=== PATIENT | female | born 1980 | race Caucasian/White ===

== ENCOUNTER 2017-05-18 16:55 | Emergency (ER) | payer OTHER ==
--- NOTE | 2017-05-18 17:13 | ED CLINICAL REPORT ---
Clinical Report - Physicians/Mid Levels [facility] [address] [place] [address] 05/18/2017 16:57 [id number] Time Seen: 17:05 May 18 2017. Arrived- By private vehicle. Historian- patient. HISTORY OF PRESENT ILLNESS Chief Complaint: left breast pain/weakness. This started yesterday and is still present. (Patients complaining of left breast pain since last night, some weakness and fatigue today. Patient denies fevers. Denies any rash. Denies any trauma. Denies cough/ sob. Vag delivery with no complications in january 2017). REVIEW OF SYSTEMS No fever, sore throat, nasal congestion, cough or diarrhea. No difficulty with urination or blackouts. No difficulty with ambulation. All systems otherwise negative, except as recorded above. PAST HISTORY Problems: Discomfort of . OB History. Care. Chronic Back Pain. . Additional Surgeries: Carpal Tunnel Surgery. Tonsillectomy. Allergies: Latex. SOCIAL HISTORY No alcohol use or drug use. ADDITIONAL NOTES The nursing notes have been reviewed. PHYSICAL EXAM Vital Signs: 05/18/2017 17:05 BP: 127/76. HR: 82. RR: 16. O2 saturation: 98%. Temp: 98.1 F. Pain level now: 7/10. Appearance: Alert. CVS: Normal heart rate and rhythm. Heart sounds normal. Respiratory: No respiratory distress. Breath sounds normal. No decreased air movement. Breast Exam: Seed District Sales Manager present. Right Breast: Normal appearance. No scars. Left Breast: Normal appearance. Normal nipple. Swelling. lateral/ tenderness as well, no fluctulance, no mass. No erythema noted. No skin rash, ecchymosis, laceration or abrasion present. No mastectomy noted, skin lesion present or nipple discharge. Abdomen: No visible injury. Soft. Bowel sounds normal. No abdominal tenderness. Skin: Skin warm. Normal skin color. Neuro: Oriented X 3. PROGRESS AND PROCEDURES Course of Care: afebrile patient. With no skin color changes of the breasts. No signs of abscess. No nipple discharge or drainage. The patient is above signs of early lactational mastitis. Pain history and generalized symptoms. Patient started on antibiotics, encouraged to continue breast-feeding. Discussed narcotic use and need to pump and dump. Patient understands plan. Patient is stable. Physical exam findings are improved. Symptoms better. Patient/family counseled. Disposition: Discharged. CLINICAL IMPRESSION Acute mastitis of the left breast associated with breast feeding. INSTRUCTIONS (as discussed will be given narcotics but please pump and dump after taking (within 15 mins) of the narcotic Continue to breast feed WARM packs). Prescription Medications: Hydrocodone/APAP 7.5mg / 325mg: take 1 orally every 6 hours as needed for pain. Dispense twelve (12). No refill. Cephalexin 500 mg: take 1 capsule orally every 6 hours for 10 days. No refill. (Electronically signed by Shreya Nixon P.A.-C 05/18/2017 17:24)
--- NOTE | 2017-05-18 17:13 | ED CLINICAL REPORT ---
Clinical Report - Physicians/Mid Levels [facility] [address] [place] [address] 05/18/2017 16:57 [id number] Time Seen: 17:05 May 18 2017. Arrived- By private vehicle. Historian- patient. HISTORY OF PRESENT ILLNESS Chief Complaint: left breast pain/weakness. This started yesterday and is still present. (Patients complaining of left breast pain since last night, some weakness and fatigue today. Patient denies fevers. Denies any rash. Denies any trauma. Denies cough/ sob. Vag delivery with no complications in january 2017). REVIEW OF SYSTEMS No fever, sore throat, nasal congestion, cough or diarrhea. No difficulty with urination or blackouts. No difficulty with ambulation. All systems otherwise negative, except as recorded above. PAST HISTORY Problems: Discomfort of . OB History. Care. Chronic Back Pain. . Additional Surgeries: Carpal Tunnel Surgery. Tonsillectomy. Allergies: Latex. SOCIAL HISTORY No alcohol use or drug use. ADDITIONAL NOTES The nursing notes have been reviewed. PHYSICAL EXAM Vital Signs: 05/18/2017 17:05 BP: 127/76. HR: 82. RR: 16. O2 saturation: 98%. Temp: 98.1 F. Pain level now: 7/10. Appearance: Alert. CVS: Normal heart rate and rhythm. Heart sounds normal. Respiratory: No respiratory distress. Breath sounds normal. No decreased air movement. Breast Exam: Rn Renal present. Right Breast: Normal appearance. No scars. Left Breast: Normal appearance. Normal nipple. Swelling. lateral/ tenderness as well, no fluctulance, no mass. No erythema noted. No skin rash, ecchymosis, laceration or abrasion present. No mastectomy noted, skin lesion present or nipple discharge. Abdomen: No visible injury. Soft. Bowel sounds normal. No abdominal tenderness. Skin: Skin warm. Normal skin color. Neuro: Oriented X 3. PROGRESS AND PROCEDURES Course of Care: afebrile patient. With no skin color changes of the breasts. No signs of abscess. No nipple discharge or drainage. The patient is above signs of early lactational mastitis. Pain history and generalized symptoms. Patient started on antibiotics, encouraged to continue breast-feeding. Discussed narcotic use and need to pump and dump. Patient understands plan. Patient is stable. Physical exam findings are improved. Symptoms better. Patient/family counseled. Disposition: Discharged. CLINICAL IMPRESSION Acute mastitis of the left breast associated with breast feeding. INSTRUCTIONS (as discussed will be given narcotics but please pump and dump after taking (within 15 mins) of the narcotic Continue to breast feed WARM packs). Prescription Medications: Hydrocodone/APAP 7.5mg / 325mg: take 1 orally every 6 hours as needed for pain. Dispense twelve (12). No refill. Cephalexin 500 mg: take 1 capsule orally every 6 hours for 10 days. No refill. (Electronically signed by Shreya Nixon P.A.-C 05/18/2017 17:24)
--- NOTE | 2017-05-18 17:13 | ED NURSING NOTES ---
Clinical Report - Nurses [facility] [address] [place] [address] 05/18/2017 16:57 Patient: CHANCE SARGENT TRIAGE Triage time 17:06. Acuity: LEVEL 4. SEPSIS SCREEN: Sepsis Screen. Negative (no infection suspected/documented). --17:11 Alisa Mccoy R.N. 17:05 05/18/17. BP: 127/76 taken on the left arm, via an automated monitor, while lying. HR: 82. RR: 16. O2 saturation: 98%. Temp: 98.1 F. Pain level now: 05/20. --17:11 Alisa Mccoy R.N. Chief Complaint: (Left breast pain). 17:06. --17:25 Alisa Mccoy R.N. Weight: 122.4 kg stated. Height/Length: 68 inches Per Patient. BMI: 41. --17:10 Alisa Mccoy R.N. Medications None. --17:26 Alisa Mccoy R.N. Allergies Latex. --17:08 Alisa Mccoy R.N. History Arrived by private vehicle. Historian: patient. Accompanied by family. ( Tenderness in left breast. She is currently breast feeding her infant daughter.). This started last night. 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 PAST MEDICAL HX: Immunizations: up-to-date. Denies current . SOCIAL HX: No infectious disease exposure. SELF HARM ASSESSMENT: A self harm assessment was performed. The patient answered "no" to the question "Do you have thoughts of harming or killing yourself?". FALL RISK ASSESSMENT: Fall risk assessment completed. No fall risk identified. FUNCTIONAL ASSESSMENT: Functional assessment: no impairments noted. LEARNING NEEDS ASSESSMENT: The learning needs assessment revealed no barriers. ABUSE ASSESSMENT: Abuse assessment: ("yes") The patient was asked "Do you feel safe in your home?". SKIN INTEGRITY ASSESSMENT: Skin integrity risk assessment completed. No skin integrity risk identified. --17:11 Alisa Mccoy R.N. PROBLEMS: Discomfort of . OB History. Care. Chronic Back Pain. . --17:09 Alisa Mccoy R.N. ADDITIONAL SURGERIES: Carpal Tunnel Surgery. Tonsillectomy. --17:09 Alisa Mccoy R.N. Interventions ID band on patient. To room. --17:11 Alisa Mccoy R.N. PHYSICAL ASSESSMENT Ambulatory to room. GENERAL / NEURO / PSYCH: Alert. Oriented X 4. Appears in no acute distress. RESPIRATORY: Respirations not labored. Chest nontender. Breath sounds within normal limits. SKIN: Skin intact. Skin is warm and dry. Normal skin turgor. --17:12 Alisa Mccoy R.N. NURSING PROGRESS NOTES Patient gowned. Reassurance given. Briar Wood Sorter provided for the breast exam by the physician. Two patient identifiers checked. Call light placed in reach. Side rails up. Bed placed in lowest position. Brakes of bed on. Patient ready for evaluation- PA notified. --17:12 Alisa Mccoy R.N. DISPOSITION / DISCHARGE 17:21 05/18/17. BP: 127/76. HR: 82. RR: 16. O2 saturation: 98%. Temp: 98.1 F. Pain level now deferred. --17:22 Alisa Mccoy R.N. Departure time: 17:22. Condition at departure: unchanged. No learning barriers present. Discharge instructions provided and reviewed with the patient and family. Reviewed medication(s) side effects, precautions, dosing and course information. Prescription(s) given to the patient. Patient and family verbalized understanding. Written instructions provided in Turkish. The patient was discharged by the physician assistant restaurant general manager. She was discharged home and accompanied by family. She left the Emergency Department ambulatory and via private vehicle. Family member driving. --17:23 Alisa Mccoy R.N. ( Hussain HILLIARD discussed need for pump and dump breast milk after taking Vicodin.). --17:24 Alisa Mccoy R.N. Locked/Released at 05/18/2017 19:07 by Alisa Mccoy R.N.
--- NOTE | 2017-05-18 17:13 | ED NURSING NOTES ---
Clinical Report - Nurses [facility] [address] [place] [address] 05/18/2017 16:57 Patient: CHANCE SARGENT TRIAGE Triage time 17:06. Acuity: LEVEL 4. SEPSIS SCREEN: Sepsis Screen. Negative (no infection suspected/documented). --17:11 Alisa Mccoy R.N. 17:05 05/18/17. BP: 127/76 taken on the left arm, via an automated monitor, while lying. HR: 82. RR: 16. O2 saturation: 98%. Temp: 98.1 F. Pain level now: 05/20. --17:11 Alisa Mccoy R.N. Chief Complaint: (Left breast pain). 17:06. --17:25 Alisa Mccoy R.N. Weight: 122.4 kg stated. Height/Length: 68 inches Per Patient. BMI: 41. --17:10 Alisa Mccoy R.N. Medications None. --17:26 Alisa Mccoy R.N. Allergies Latex. --17:08 Alisa Mccoy R.N. History Arrived by private vehicle. Historian: patient. Accompanied by family. ( Tenderness in left breast. She is currently breast feeding her infant daughter.). This started last night. 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 PAST MEDICAL HX: Immunizations: up-to-date. Denies current . SOCIAL HX: No infectious disease exposure. SELF HARM ASSESSMENT: A self harm assessment was performed. The patient answered "no" to the question "Do you have thoughts of harming or killing yourself?". FALL RISK ASSESSMENT: Fall risk assessment completed. No fall risk identified. FUNCTIONAL ASSESSMENT: Functional assessment: no impairments noted. LEARNING NEEDS ASSESSMENT: The learning needs assessment revealed no barriers. ABUSE ASSESSMENT: Abuse assessment: ("yes") The patient was asked "Do you feel safe in your home?". SKIN INTEGRITY ASSESSMENT: Skin integrity risk assessment completed. No skin integrity risk identified. --17:11 Alisa Mccoy R.N. PROBLEMS: Discomfort of . OB History. Care. Chronic Back Pain. . --17:09 Alisa Mccoy R.N. ADDITIONAL SURGERIES: Carpal Tunnel Surgery. Tonsillectomy. --17:09 Alisa Mccoy R.N. Interventions ID band on patient. To room. --17:11 Alisa Mccoy R.N. PHYSICAL ASSESSMENT Ambulatory to room. GENERAL / NEURO / PSYCH: Alert. Oriented X 4. Appears in no acute distress. RESPIRATORY: Respirations not labored. Chest nontender. Breath sounds within normal limits. SKIN: Skin intact. Skin is warm and dry. Normal skin turgor. --17:12 Alisa Mccoy R.N. NURSING PROGRESS NOTES Patient gowned. Reassurance given. Art Supervisor provided for the breast exam by the physician. Two patient identifiers checked. Call light placed in reach. Side rails up. Bed placed in lowest position. Brakes of bed on. Patient ready for evaluation- PA notified. --17:12 Alisa Mccoy R.N. DISPOSITION / DISCHARGE 17:21 05/18/17. BP: 127/76. HR: 82. RR: 16. O2 saturation: 98%. Temp: 98.1 F. Pain level now deferred. --17:22 Alisa Mccoy R.N. Departure time: 17:22. Condition at departure: unchanged. No learning barriers present. Discharge instructions provided and reviewed with the patient and family. Reviewed medication(s) side effects, precautions, dosing and course information. Prescription(s) given to the patient. Patient and family verbalized understanding. Written instructions provided in South Korean. The patient was discharged by the physician assistant producer. She was discharged home and accompanied by family. She left the Emergency Department ambulatory and via private vehicle. Family member driving. --17:23 Alisa Mccoy R.N. ( Hussain HILLIARD discussed need for pump and dump breast milk after taking Vicodin.). --17:24 Alisa Mccoy R.N. Locked/Released at 05/18/2017 19:07 by Alisa Mccoy R.N.
--- NOTE | 2017-05-18 19:07 | ED MED RECONCILIATION SUMMARY ---
Patient: CHANCE SARGENT Medication Reconciliation [facility] Visit[facility]: [id number] [address] [place] [address] 36y, F Registration Date/Time: 05/18/2017 Weight: 122.4 kg Height/Length: 68 in. BMI: 41.0 ALLERGIES: Latex The patient's Home Medications are listed below: NONE. The source(s) of the original Home Medication information: Not obtained. The following Medications were given to the patient in the Emergency Department: None. The following Medications were prescribed to the patient: Hydrocodone/APAP 7.5mg / 325mg: take 1 orally every 6 hours as needed for pain. Dispense twelve (12). No refill. -- Shreya Nixon, P.A.-C Cephalexin 500 mg: take 1 capsule orally every 6 hours for 10 days. No refill. -- Shreya Nixon, P.A.-C
--- NOTE | 2017-05-18 19:07 | ED DISCHARGE INSTRUCTIONS ---
Patient: CHANCE SARGENT General Instructions [facility] VisitID: [id number] [place] [address] 36y, F Registration Date/Time: 05/18/2017 Acute mastitis of the left breast associated with breast feeding. INSTRUCTIONS (as discussed will be given narcotics but please pump and dump after taking (within 15 mins) of the narcotic Continue to breast feed WARM packs). Prescription Medications: Hydrocodone/APAP 7.5mg / 325mg: take 1 orally every 6 hours as needed for pain. Dispense twelve (12). No refill. Cephalexin 500 mg: take 1 capsule orally every 6 hours for 10 days. No refill. ADDITIONAL INFORMATION Mastitis Mastitis is a bacterial infection in the breast. It is most common in nursing mothers and is usually a result of small cracks in the nipple. The infection is treated with antibiotics. If treatment is delayed or if the infection is severe, a pocket of pus (abscess) can form. This requires minor surgery to drain the pus. Sometimes the infection can spread into the bloodstream causing a more severe illness with fever and chills. Home Care: 1) It is important to keep the milk flowing from the infected breast. Continue breast feeding from both breasts as usual. This will not hurt the baby. If this is too painful, use a breast pump to remove milk from the infected side. This can be fed to your baby or discarded. 2) Apply a warm compress (a heating pad, hot water bottle or towel soaked in hot water) to the infected breast several times per day. 3) After each feeding, express a small amount of breast milk and apply to the nipples. This lubricates the nipples and helps heal small cracks in the tissue. 4) Soap dries the skin and removes protective oils. When bathing, clean the breast with water only, do not use soap. 5) Take all of the antibiotics prescribed. 6) Wearing a supportive bra can help with the pain. 7) [id number] breast creams are not recommended for treatment or prevention of mastitis. Follow Up: Make an appointment with your doctor in the next week to be sure your infection is healing properly. Get Prompt Medical Attention if any of the following occur: -- Fever over 100.4 F (38.0 C) for more than 2 days of antibiotic treatment -- Shaking chills -- Increasing breast pain or firmness in the breast -- Spreading area of redness Hydrocodone Bitartrate, Acetaminophen Oral tablet What is this medicine? ACETAMINOPHEN; HYDROCODONE (a set a MELLISSA martin fen; baljinder droe KOE done) is a pain reliever. It is used to treat mild to moderate pain. How should I use this medicine? Take this medicine by mouth. Swallow it with a full glass of water. Follow the directions on the prescription label. If the medicine upsets your stomach, take the medicine with food or milk. Do not take more than you are told to take. Talk to your career guidance technician regarding the use of this medicine in children. This medicine is not approved for use in children. What side effects may I notice from receiving this medicine? Side effects that you should report to your doctor or health healthcare administrator as soon as possible: allergic reactions like skin rash, itching or hives, swelling of the face, lips, or tongue breathing problems confusion feeling faint or lightheaded, falls stomach pain yellowing of the eyes or skin Side effects that usually do not require medical attention (report to your doctor or health healthcare administrator if they continue or are bothersome): nausea, vomiting stomach upset What may interact with this medicine? alcohol antihistamines isoniazid medicines for depression, anxiety, or psychotic disturbances medicines for sleep muscle relaxants naltrexone narcotic medicines (opiates) for pain phenobarbital ritonavir tramadol What if I miss a dose? If you miss a dose, take it as soon as you can. If it is almost time for your next dose, take only that dose. Do not take double or extra doses. Where should I keep my medicine? Keep out of the reach of children. This medicine can be abused. Keep your medicine in a safe place to protect it from theft. Do not share this medicine with anyone. Selling or giving away this medicine is dangerous and against the law. Store at room temperature between 15 and 30 degrees C (59 and 86 degrees F). Protect from light. Keep container tightly closed. Throw away any unused medicine after the expiration date. Discard unused medicine and used packaging carefully. Pets and children can be harmed if they find used or lost packages. What should I tell my health care provider before I take this medicine? They need to know if you have any of these conditions: brain tumor Crohn's disease, inflammatory bowel disease, or ulcerative colitis drink more than 3 alcohol-containing drinks per day drug abuse or addiction head injury heart or circulation problems kidney disease or problems going to the bathroom liver disease lung disease, asthma, or breathing problems an unusual or allergic reaction to acetaminophen, hydrocodone, other opioid analgesics, other medicines, foods, dyes, or preservatives or trying to get breast-feeding What should I watch for while using this medicine? Tell your doctor or health healthcare administrator if your pain does not go away, if it gets worse, or if you have new or a different type of pain. You may develop tolerance to the medicine. Tolerance means that you will need a higher dose of the medicine for pain relief. Tolerance is normal and is expected if you take the medicine for a long time. Do not suddenly stop taking your medicine because you may develop a severe reaction. Your body becomes used to the medicine. This does NOT mean you are addicted. Addiction is a behavior related to getting and using a drug for a non-medical reason. If you have pain, you have a medical reason to take pain medicine. Your doctor will tell you how much medicine to take. If your doctor wants you to stop the medicine, the dose will be slowly lowered over time to avoid any side effects. You may get drowsy or dizzy when you first start taking the medicine or change doses. Do not drive, use machinery, or do anything that may be dangerous until you know how the medicine affects you. Stand or sit up slowly. There are different types of narcotic medicines (opiates) for pain. If you take more than one type at the same time, you may have more side effects. Give your health care provider a list of all medicines you use. Your doctor will tell you how much medicine to take. Do not take more medicine than directed. Call emergency for help if you have problems breathing. The medicine will cause constipation. Try to have a bowel movement at least every 2 to 3 days. If you do not have a bowel movement for 3 days, call your doctor or health healthcare administrator. Too much acetaminophen can be very dangerous. Do not take Tylenol (acetaminophen) or medicines that contain acetaminophen with this medicine. Many non-prescription medicines contain acetaminophen. Always read the labels carefully. You have been given the following additional information: Mastitis Hydrocodone Bitartrate, Acetaminophen Oral tablet (Electronically signed by Shreya Nixon P.A.-C 05/18/2017 17:24)
--- NOTE | 2017-05-18 19:07 | ED MAR SUMMARY ---
..... Medication Administration Record [facility] [address] [place], [place] [id number] Patient: CHANCE SARGENT Visit ID: [id number] 36y, F Weight: 122.4 kg Height/Length: 68 in BMI: 41 ALLERGIES: Latex
--- NOTE | 2017-05-18 19:07 | ED MAR SUMMARY ---
..... Medication Administration Record [facility] [address] [place], [place] [id number] Patient: CHANCE SARGENT Visit ID: [id number] 36y, F Weight: 122.4 kg Height/Length: 68 in BMI: 41 ALLERGIES: Latex
--- NOTE | 2017-05-18 19:07 | ED MED RECONCILIATION SUMMARY ---
Patient: CHANCE SARGENT Medication Reconciliation Report [facility] VisitID: [id number] [address] [place] [address] 36y, F Registration Date/Time: 05/18/2017 Weight: 122.4 kg Height/Length: 68 in. BMI: 41.0 ALLERGIES: Latex The patient's Home Medications are listed below: NONE. The source(s) of the original Home Medication information: Not obtained. The following Medications were given to the patient in the Emergency Department: None. The following Medications were prescribed to the patient: Hydrocodone/APAP 7.5mg / 325mg: take 1 orally every 6 hours as needed for pain. Dispense twelve (12). No refill. -- Shreya Nixon, P.A.-C Cephalexin 500 mg: take 1 capsule orally every 6 hours for 10 days. No refill. -- Shreya Nixon, P.A.-C
--- NOTE | 2017-05-18 19:07 | ED DISCHARGE INSTRUCTIONS ---
Patient: CHANCE SARGENT General Instructions [facility] VisitID: [id number] [place] [address] 36y, F Registration Date/Time: 05/18/2017 Acute mastitis of the left breast associated with breast feeding. INSTRUCTIONS (as discussed will be given narcotics but please pump and dump after taking (within 15 mins) of the narcotic Continue to breast feed WARM packs). Prescription Medications: Hydrocodone/APAP 7.5mg / 325mg: take 1 orally every 6 hours as needed for pain. Dispense twelve (12). No refill. Cephalexin 500 mg: take 1 capsule orally every 6 hours for 10 days. No refill. ADDITIONAL INFORMATION Mastitis Mastitis is a bacterial infection in the breast. It is most common in nursing mothers and is usually a result of small cracks in the nipple. The infection is treated with antibiotics. If treatment is delayed or if the infection is severe, a pocket of pus (abscess) can form. This requires minor surgery to drain the pus. Sometimes the infection can spread into the bloodstream causing a more severe illness with fever and chills. Home Care: 1) It is important to keep the milk flowing from the infected breast. Continue breast feeding from both breasts as usual. This will not hurt the baby. If this is too painful, use a breast pump to remove milk from the infected side. This can be fed to your baby or discarded. 2) Apply a warm compress (a heating pad, hot water bottle or towel soaked in hot water) to the infected breast several times per day. 3) After each feeding, express a small amount of breast milk and apply to the nipples. This lubricates the nipples and helps heal small cracks in the tissue. 4) Soap dries the skin and removes protective oils. When bathing, clean the breast with water only, do not use soap. 5) Take all of the antibiotics prescribed. 6) Wearing a supportive bra can help with the pain. 7) [id number] breast creams are not recommended for treatment or prevention of mastitis. Follow Up: Make an appointment with your doctor in the next week to be sure your infection is healing properly. Get Prompt Medical Attention if any of the following occur: -- Fever over 100.4 F (38.0 C) for more than 2 days of antibiotic treatment -- Shaking chills -- Increasing breast pain or firmness in the breast -- Spreading area of redness Hydrocodone Bitartrate, Acetaminophen Oral tablet What is this medicine? ACETAMINOPHEN; HYDROCODONE (a set a MELLISSA martin fen; baljinder droe KOE done) is a pain reliever. It is used to treat mild to moderate pain. How should I use this medicine? Take this medicine by mouth. Swallow it with a full glass of water. Follow the directions on the prescription label. If the medicine upsets your stomach, take the medicine with food or milk. Do not take more than you are told to take. Talk to your double needle operator lockstitch regarding the use of this medicine in children. This medicine is not approved for use in children. What side effects may I notice from receiving this medicine? Side effects that you should report to your doctor or health health care coordinator as soon as possible: allergic reactions like skin rash, itching or hives, swelling of the face, lips, or tongue breathing problems confusion feeling faint or lightheaded, falls stomach pain yellowing of the eyes or skin Side effects that usually do not require medical attention (report to your doctor or health health care coordinator if they continue or are bothersome): nausea, vomiting stomach upset What may interact with this medicine? alcohol antihistamines isoniazid medicines for depression, anxiety, or psychotic disturbances medicines for sleep muscle relaxants naltrexone narcotic medicines (opiates) for pain phenobarbital ritonavir tramadol What if I miss a dose? If you miss a dose, take it as soon as you can. If it is almost time for your next dose, take only that dose. Do not take double or extra doses. Where should I keep my medicine? Keep out of the reach of children. This medicine can be abused. Keep your medicine in a safe place to protect it from theft. Do not share this medicine with anyone. Selling or giving away this medicine is dangerous and against the law. Store at room temperature between 15 and 30 degrees C (59 and 86 degrees F). Protect from light. Keep container tightly closed. Throw away any unused medicine after the expiration date. Discard unused medicine and used packaging carefully. Pets and children can be harmed if they find used or lost packages. What should I tell my health care provider before I take this medicine? They need to know if you have any of these conditions: brain tumor Crohn's disease, inflammatory bowel disease, or ulcerative colitis drink more than 3 alcohol-containing drinks per day drug abuse or addiction head injury heart or circulation problems kidney disease or problems going to the bathroom liver disease lung disease, asthma, or breathing problems an unusual or allergic reaction to acetaminophen, hydrocodone, other opioid analgesics, other medicines, foods, dyes, or preservatives or trying to get breast-feeding What should I watch for while using this medicine? Tell your doctor or health health care coordinator if your pain does not go away, if it gets worse, or if you have new or a different type of pain. You may develop tolerance to the medicine. Tolerance means that you will need a higher dose of the medicine for pain relief. Tolerance is normal and is expected if you take the medicine for a long time. Do not suddenly stop taking your medicine because you may develop a severe reaction. Your body becomes used to the medicine. This does NOT mean you are addicted. Addiction is a behavior related to getting and using a drug for a non-medical reason. If you have pain, you have a medical reason to take pain medicine. Your doctor will tell you how much medicine to take. If your doctor wants you to stop the medicine, the dose will be slowly lowered over time to avoid any side effects. You may get drowsy or dizzy when you first start taking the medicine or change doses. Do not drive, use machinery, or do anything that may be dangerous until you know how the medicine affects you. Stand or sit up slowly. There are different types of narcotic medicines (opiates) for pain. If you take more than one type at the same time, you may have more side effects. Give your health care provider a list of all medicines you use. Your doctor will tell you how much medicine to take. Do not take more medicine than directed. Call emergency for help if you have problems breathing. The medicine will cause constipation. Try to have a bowel movement at least every 2 to 3 days. If you do not have a bowel movement for 3 days, call your doctor or health health care coordinator. Too much acetaminophen can be very dangerous. Do not take Tylenol (acetaminophen) or medicines that contain acetaminophen with this medicine. Many non-prescription medicines contain acetaminophen. Always read the labels carefully. You have been given the following additional information: Mastitis Hydrocodone Bitartrate, Acetaminophen Oral tablet (Electronically signed by Shreya Nixon P.A.-C 05/18/2017 17:24)
== END 2017-05-18 17:24 | disposition home or self-care (01) ==
LOC: ED SRH 16:55
DX: N61.0 Mastitis without abscess (principal)